=== PATIENT | male | born 1985 | race Caucasian/White ===

== ENCOUNTER 2024-03-19 22:01 | Emergency (ER) | payer MEDICAID ==
[~2024-03-19] VITALS: Ht 175.3 cm; Wt 123.4 kg
[2024-03-19 22:08] VITALS: O2SAT 100
[2024-03-20 01:11] LABS: CHLORIDE 106 mEq/L (98-107); POTASSIUM 3.9 mEq/L (3.5-5.1); SODIUM 141 mEq/L (136-145)
[2024-03-20 01:12] LABS: CALCIUM 9.6 mg/dL (8.7-10.4); CARBON DIOXIDE 27 mEq/L (21-32)
[2024-03-20 01:17] LABS: CREATININE 0.8 mg/dL (0.6-1.3); GLUCOSE 96 mg/dL (70-105); UREA NITROGEN BLOOD 12 mg/dL (9-23)
[2024-03-20 01:29] VITALS: BP 149/101; PULSE 80; RESP 18; TEMP 36.89184; O2SAT 97
[2024-03-20 01:37] LABS: TROPONIN I HIGH SENSITIVITY < 4 ng/L (3.0-53)
[2024-03-20 01:43] LABS: BASOPHILS % 1.3 % (0.0-2.0); EOSINOPHILS % 2.4 % (0.0-5.0); HEMATOCRIT. 44.4 % (42.0-52.0); HEMOGLOBIN. 15.2 g/dL (14.0-18.0); LYMPHOCYTES % 32.6 % (20.0-50.0); MEAN CORPUSCULAR HEMOGLOBIN 29.5 pg (28.0-32.0); MEAN CORPUSCULAR HGB CONC 34.3 g/dL (31.0-37.0); MEAN CORPUSCULAR VOLUME 85.9 fL (80.0-94.0); NEUTROPHILS % 57.7 % (40.0-76.0); RED BLOOD CELL COUNT 5.17 mill/uL (4.7-6.1); WHITE BLOOD COUNT 10.3 x1000/uL (4.5-11.0)
[2024-03-20 01:49] LABS: DIFFERENTIAL COMMENT 1
[2024-03-20 09:05] LABS: MEAN PLATELET VOLUME 9.6 fl (7.4-10.4); PLATELET 226 x1000/uL (130-400)
== END 2024-03-20 02:26 | disposition left against medical advice (07) ==
LOC: ER 22:01
DX: R06.02 Shortness of breath (principal); R07.9 Chest pain, unspecified; F19.90 Other psychoactive substance use, unspecified, uncomplicated
CPT/HCPCS: 36415; 71045; 80048; 84484; 85025; 85379; 93005; 99285